=== PATIENT | male | born 1965 | race African-American/Black ===

== ENCOUNTER 2018-07-05 22:02 | Emergency (ER) | payer SELFPAY ==
[~2018-07-05] VITALS: Ht 188 cm; Wt 88.5 kg
[2018-07-05] MEDS ORDERED: ACETAMINOPHEN 1000 MG/100 ML IV STA (22:24)
[2018-07-05] MEDS ORDERED: PANTOPRAZOLE 40 MG 10ML VIAL IV STA (22:24)
[2018-07-05] MEDS ORDERED: SODIUM CHLORIDE 0.9% 1000ML 1,000 ML IV ONE (22:30)
--- NOTE | 2018-07-05 22:41 | Discharge Summary ---
No dictation, 00:01 seconds. RODDY SOLIS M.D. Job#: [id number]
[2018-07-05 23:03] LABS: BASOPHILS % 0.5 % (0.0-1.0); EOSINOPHILS # (AUTO) 0.5 (0.0-0.4); EOSINOPHILS % 8.7 % (0.0-6.0); HEMATOCRIT 37.3 % (38.2-49.6); HEMOGLOBIN 13.4 g/dL (14.0-18.0); LYMPHOCYTES % 16.1 % (18.0-39.1); MEAN CORPUSCULAR HGB CONC 35.9 g/dL (31-35); MEAN CORPUSCULAR VOLUME 91.9 fL (81-99); MONOCYTES # (AUTO) 0.4 (0.2-0.8); MONOCYTES % 6.3 % (4.4-11.3); NEUTROPHILS # (AUTO) 4.2 (2.1-6.9); NEUTROPHILS % 68.1 % (38.7-80.0); PLATELET COUNT 421 x10e3/uL (140-360); RED BLOOD COUNT 4.06 x10e6/uL (4.3-5.7); RED CELL DISTRIBUTION WIDTH 12.3 % (11.7-14.4)
--- NOTE | 2018-07-05 23:06 | Diagnostic Imaging Report ---
EXAM: CHEST SINGLE (PORTABLE), AP 1 view INDICATION: Vomiting, GI bleed COMPARISON: None FINDINGS: LINES/TUBES: None LUNGS: No consolidations or edema. PLEURA: No effusions or pneumothorax. HEART AND MEDIASTINUM: Normal size and contour. BONES AND SOFT TISSUES: No acute findings. IMPRESSION: No acute thoracic abnormality. Signed by: Dr. Loraine Dove M.D. on 07/05/2018 11:02 PM
[2018-07-05 23:16] LABS: INR 1.17
[2018-07-05 23:17] LABS: PARTIAL THROMBOPLASTIN TIME 39.5 seconds (23.8-35.5)
[2018-07-05 23:26] LABS: ALANINE AMINOTRANSFERASE 22 IU/L (0-55); ALBUMIN 3.2 g/dL (3.5-5.0); ALBUMIN/GLOBULIN RATIO 0.7 (0.8-2.0); ALKALINE PHOSPHATASE 35 IU/L (40-150); AMYLASE 69 U/L (25-125); ANION GAP 16.6 mmol/L (8-16); BLOOD UREA NITROGEN 8 mg/dL (7-26); BUN/CREATININE RATIO 9 (6-25); CALCIUM 9.5 mg/dL (8.4-10.2); CARBON DIOXIDE 24 mmol/L (22-29); CHLORIDE 96 mmol/L (98-107); CREATINE KINASE 76 IU/L (30-200); CREATININE, SERUM 0.88 mg/dL (0.72-1.25); EST GLOMERULAR FILTRATION RATE > 60 ML/MIN (60-); GLUCOSE 122 mg/dL (74-118); LIPASE 31 U/L (8-78); POTASSIUM 3.6 mmol/L (3.5-5.1); SODIUM 133 mmol/L (136-145)
--- NOTE | 2018-07-06 00:18 | Diagnostic Imaging Report ---
EXAM: CT ABDOMEN AND PELVIS with IV CONTRAST DATE: 07/05/2018 10:24 PM Time stamp on Exam: 2355 hours INDICATION: Nausea, blood in stool COMPARISON: None TECHNIQUE: The abdomen and pelvis were scanned using a multidetector helical scanner. Coronal and sagittal reformations were obtained. Routine protocol performed. IV Contrast: 100 cc Isovue 370 Oral Contrast: Water CTDIvol has been reviewed. It is below the limits set by the Radiation Protocol Committee (RPC). FINDINGS: LOWER THORAX: No consolidations LIVER: Subcentimeter hypodensity in the left lobe of the liver that is too small to characterize, likely a cyst. BILIARY: The gallbladder is unremarkable. No ductal dilation. SPLEEN: No masses PANCREAS: No masses ADRENALS: No nodules KIDNEYS: Symmetric perfusion. No enhancing masses. No hydronephrosis. GI TRACT: No distention, wall thickening or evidence of obstruction. No evidence of appendicitis. VESSELS: Unremarkable PERITONEUM/RETROPERITONEUM: Nonspecific mild central fat stranding near the cardia of the stomach, pancreas and third portion of the duodenum. LYMPH NODES: No lymphadenopathy REPRODUCTIVE ORGANS: Unremarkable BLADDER: Unremarkable SOFT TISSUES: Unremarkable BONES: No suspicious bone lesions. IMPRESSION: Nonspecific mild epigastric inflammation. The differential includes gastritis, duodenitis or pancreatitis. No free peritoneal air or free fluid. No bowel obstruction. Signed by: Dr. Loraine Dove M.D. on 07/06/2018 12:14 AM
[2018-07-06 00:44] LABS: BILIRUBIN,URINE NEGATIVE (NEGATIVE); CLARITY,URINE CLEAR (CLEAR); COLOR,URINE YELLOW (YELLOW); KETONES,URINE NEGATIVE (NEGATIVE); LEUKOCYTE ESTERASE ,URINE NEGATIVE (NEGATIVE); NITRITE,URINE NEGATIVE (NEGATIVE); PROTEIN,URINE DIPSTICK NEGATIVE (NEGATIVE); URINE UROBILINOGEN 0.2 mg/dL (0.2 - 1)
[2018-07-06 01:02] LABS: WBC,URINE (MAN) 0-5 /HPF (0-5)
[2018-07-06 01:06] VITALS: BP 138/74
[2018-07-06] MEDS ORDERED: SODIUM CHLORIDE 0.9% 50ML 50 ML ONE (02:17)
[2018-07-06] MEDS ORDERED: IOPAMIDOL 370 MG/ML 200 ML INFUS..BTL INJ ONE (02:17)
== END 2018-07-06 01:16 | disposition home or self-care (01) ==
LOC: ER 22:02
DX: R50.9 Fever, unspecified (principal); R11.0 Nausea; R10.13 Epigastric pain; A08.4 Viral intestinal infection, unspecified; K62.5 Hemorrhage of anus and rectum
CPT/HCPCS: 36415; 71045; 74177; 80053; 81001; 82150; 82270; 82550; 82553; 83605; 83690; 84484; 85025; 85610; 85730; 86850; 86900; 87040; 99284; J7030; Q9967